=== PATIENT | female | born 1975 | race Caucasian/White ===

== ENCOUNTER → 2018-08-07 12:02 | Outpatient (CLI) | payer OTHER, SELFPAY ==
--- NOTE | 2018-08-07 12:18 | MRI_ITS ---
STUDY: MRI LUMBAR SPINE WITHOUT CONTRAST REASON FOR EXAM: Female, 42 years old. Lower back pain TECHNIQUE: Standardized fat and water weighted pulse sequences were obtained in the sagittal and axial planes. COMPARISON: None FINDINGS: T12-L1: Normal endplates. Normal disc height, hydration and morphology. Normal bilateral facet joints. Normal central canal and bilateral lateral recesses. Normal bilateral intervertebral neural foramina. Normal lumbar lordosis. There is no substantial scoliosis. Normal conus medullaris that terminates at the L1 level. L1-2: Normal endplates. Normal disc height, hydration and morphology. Normal bilateral facet joints. Normal central canal and bilateral lateral recesses. Normal bilateral intervertebral neural foramina. L2-3: Normal endplates. Normal disc height, hydration and morphology. Normal bilateral facet joints. Normal central canal and bilateral lateral recesses. Normal bilateral intervertebral neural foramina. L3-4: Endplate spondylosis. Decreased disc height and small circumferential disc bulge. Degenerative changes of the bilateral facet joints. Mild narrowing of the central canal and bilateral intervertebral neural foramina. L4-5: Endplate spondylosis. Decreased disc height and small circumferential disc bulge. Degenerative changes of the bilateral facet joints. Mild narrowing of the central canal and bilateral intervertebral neural foramina. L5-S1: Endplate spondylosis. Decreased disc height and small circumferential disc bulge. 4 mm spondylolisthesis. Degenerative changes of the bilateral facet joints. Mild narrowing of the central canal and bilateral intervertebral neural foramina. Normal visualized sacral ala. Normal visualized paraspinous soft tissue structures. MRI/Spine Lumbar (Routine) IMPRESSION: Multilevel degenerative changes, as described above. Electronically Signed: Juarez Marks, at 11:53 EDT Tel , Service support ,
== END ==
PROVIDERS: Family Provider Physician Assistant; PCP Physician Assistant; Referring Provider Anesthesiology Pain Medicine; Visit Provider Anesthesiology Pain Medicine
DX: M54.5 Low back pain (principal); M79.606 Pain in leg, unspecified
CPT/HCPCS: 72148

== ENCOUNTER 2018-12-03 09:00 | Outpatient (RCR) | payer OTHER, SELFPAY ==
--- NOTE | 2018-12-03 09:00 | BH.SGPN.GN ---
Behaviors/Verbalizations/Mental Status: [] Eye contact is good. Motor activity is appropriate. Appearance is casual. Speech is Appropriate. Mood is depressed. Affect is flat. Thoughts are linear and logical. No evidence of psychosis. Reviewed daily check in sheet and no reports of suicidal ideations or intent. Client Response/Progress/Benefit: [] Pt spoke when prompted. Attentive during group. This was pt's first day in IOP. Shared what she would like to get out of group. Reports that she would like to learn more coping skills and increase her ability to ask for help. She also empathized with peers on several topics during the group. No progress noted as this was first day. Benefited from group support, encouragement, and feedback. Will continue in IOP to maintain safety, prevent decompensation, and improve functioning to return to work. Narrative Note: []
--- NOTE | 2018-12-03 11:20 | BH.SGPN.GN ---
Behaviors/Verbalizations/Mental Status: [Eye contact is good. Motor activity is appropriate. Appearance is casual. Grooming appropriate. Speech has normal rate and soft tone. Mood is depressed, anxious. Affect is constricted. Thoughts are linear and logical. No evidence of psychosis. ] Client Response/Progress/Benefit: [Pt attentive throughout, contributed some to discussion and provided supportive feedback to fellow participants. Engaged in creating own mental health SMART goal. Pt identified goal is to improve self-confidence by saying 2-3 affirmations daily over the next week. Pt reported this goal will benefit her improving confidence, reducing isolations, and increasing willingness to set boundaries for herself. Pt identified potential barriers to accomplishing goal to include: self-doubt, negative thoughts and distortions, not knowing what to do, unexpected situations at work. Pt reported she will overcome barriers by reciting positive affirmations, setting time aside for daily check-ins, and establishing a specific date and time to meet with friends to reduce likelihood of not establishing plans. Seemed to benefit from identifying a SMART goal and coming up with strategies to overcome potential barriers. Pt to continue IOP to increase consistent application of healthy coping skills, decrease depression and anxiety, maintain gains, and prevent decompensation.] Narrative Note: []
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
--- NOTE | 2018-12-03 12:40 | BH.DR.ITP ---
Initial Treatment Plan - Patient Information Visit Information: ADMISSION DATE: EXPECTED LOS: 4-6 weeks - Problems/Symptoms Problem #1:: Depression Symptom:: suicidal thoughts, self-harm, hopelessness Problem #2:: Anxiety Symptom:: rumination, panic attacks
--- NOTE | 2018-12-04 09:00 | BH.SGPN.GN ---
Behaviors/Verbalizations/Mental Status: [] Eye contact is good. Motor activity is appropriate. Appearance is casual. Speech is Appropriate. Mood is depressed. Affect is flat. Thoughts are linear and logical. No evidence of psychosis. Reviewed daily check in sheet and pt reports 2/5 for suicidal ideations, and 0/5 for intent. Will check in with patient Client Response/Progress/Benefit: [] Pt participated at time during the group discussion. Emotion for today is worried. Shared that she had a difficult conversation with her yesterday regarding her treatment, finances, and retuning to work. Pt reports that her is supportive however has concerns about finances with her being off work. Pt was assertive and understands the importance of taking time for herself and her mental health. Proud of herself for being assertive and having the conversation. Shared that yesterday was her first day in IOP and that yesterday wasn't as bad as I thought it was going to be. Progress noted. Benefited from group support, encouragement, and feedback. Will continue in IOP to maintain safety, prevent decompensation, and improve functioning to return to work. Narrative Note: []
--- NOTE | 2018-12-04 10:00 | BH.SGPN.GN ---
Behaviors/Verbalizations/Mental Status: []Eye contact is good. Motor activity is appropriate. Appearance is causal. Speech is Appropriate. Mood is anxious and depressed. Affect is constricted. Thoughts are linear and logical. No evidence of psychosis. Client Response/Progress/Benefit: []Pt responded well to session AEB pt listening attentively to others and contributing to discussion at times. Pt connected with peers during discussion about common unhealthy skills that are often used to manage stressors and mental health. Pt stated she often uses sleep and taking on too much as unhealthy coping skills. Worked with group to identify the following strategies to be helpful with increasing healthy coping skills: self-awareness, stopping self and using healthy skill, practicing new skills, and motivation. Pt able to make connections when processing group activity about importance of creating a stable base of healthy coping skills. Pt seemed to benefit from increased awareness of benefits of using healthy coping skills and understanding importance of having balance between internal and external coping skills. Pt to continue IOP level of care to maintain safety, increase healthy coping skills, and prevent decompensation. Narrative Note: []
--- NOTE | 2018-12-04 11:02 | BH.SGPN.GN ---
Behaviors/Verbalizations/Mental Status: []Client alert and oriented, neatly dressed and groomed. Eye contact good. Motor activity appropriate. Speech within normal limits. Affect constricted, mood anxious. Thoughts linear, logical, no signs of hallucinations or delusions. Client Response/Progress/Benefit: []Client responded well to session, taking notes throughout and listening during group brainstorming. Client appeared to connect with the activity from second group and helped the group identify benefits of having a strong foundation of internal and external coping skills. Client shared she wants to work on being more open with her external supports. Client attentive during group discussion the different categories of coping skills and provided some examples. Client agreed with peers that it is important to have a variety of coping skills and recognized it will take time to replace unhealthy coping skills. Client created a coping skills ?menu? from the five categories of coping skills. Client left group before sharing her coping skills menu, but client took notes during discussion. Client appeared to benefit from increasing her repertoire of healthy coping skills. Client?s second day of IOP, no progress to document at this time. Will continue IOP to prevent decompensation and improve mood stability.
--- NOTE | 2018-12-04 13:59 | BH.COMM_ITS ---
Communication Note - Communication with Client Communication Note: Pt self reported 2/5 for suicidal ideations today on check- sheet. Met with her to discuss this. Pt denies any active suicidal ideations, plan, or intent. States that she has passive thoughts of better off being . Describes these thoughts are fleeting. Reports that this has been her baseline. Tearful at times. Increased support from however per pt he struggles with understanding her illness. Discussed some strategies. Protective factors. Future-oriented. Adjusting well to IOP. Will meet for individual session tomorrow with therapist.
--- NOTE | 2018-12-05 09:00 | BH.SGPN.GN ---
Behaviors/Verbalizations/Mental Status: [] Eye contact is good. Motor activity is appropriate. Appearance is casual. Speech is Appropriate. Mood is depressed. Affect is flat. Thoughts are linear and logical. No evidence of psychosis. Reviewed daily check in sheet and pt reported 2/5 for suicidal ideation and 0/5 for intent. Per pt this is baseline. Client Response/Progress/Benefit: [] Pt was an active participant in group discussion. Notes positive as she slept well last night. Reports best sleep in over a month. Reports that yesterday Ilost my crap. Reports had thoughts that she was regressing and that she would return to the hospital. In an attempt to self-calm she went shopping and bought 6 donuts. Reports that shopping and eating are unhealthy coping skills that she utilizing. Reports that she will often hide food throughout the house from her . Feels horrible about this. Group provided feedback. Pointed out the she minimized her unhealthy skills as she went shopping at [employer] only spending $5 and of the 6 donuts she bought she only ate 3. Awareness and use of skills to minimize impact and regain control. Tearful. Benefited from group support, encouragement, and feedback. Will continue in IOP to maintain safety, prevent decompensation, and improve functioning. Narrative Note: []
--- NOTE | 2018-12-05 10:15 | BH.SGPN.GN ---
Behaviors/Verbalizations/Mental Status: []Client alert and oriented, neatly dressed and groomed. Eye contact good. Motor activity appropriate. Speech within normal limits. Affect flat, mood anxious. Thoughts linear, logical, no signs of hallucinations or delusions. Client Response/Progress/Benefit: []Client was an active participant in group discussions. Attentive and provided insight during processing of quote of the day. Client agreed with peers that it is easier to ?pretend our negatives aren?t a problem? which keeps people on an unhelpful path. The group and client worked together to identify barriers that keep one from choosing a new and healthier path to mental wellness which included; unhealthy habits, self-doubt, feeling overwhelmed, ruminations, substances, isolation, negative thinking, and ?choosing misery.? Attentive during psychoeducation on the chapters of life. Client was attentive during discussion, providing insight to distinguishing factors in each chapter. Reports that group topic reminded client that to choose a different path, one must recognize what is keeping them stuck and take responsibility. Benefited from increased awareness and education on barriers to choosing new wellness paths and chapters of life. Progress noted in client?s increased engagement during group sessions. Will continues IOP to prevent decompensation of depressive symptoms and increase healthy coping skills.
--- NOTE | 2018-12-05 15:21 | BH.MDN_ITS ---
Multi-Disciplinary Note - Note 30-min Individual Time Started:: 11:39 Date: 12/05/18 Purpose of session/treatment goals addressed:: The purpose of this session was to gather information on client's current stressors, symptoms, and treatment goals. Another goal was to build rapport and answer client's questions about the program. Eye Contact:: Good Motor Activity:: Appropriate Appearance:: Neat Speech:: Soft Mood:: Anxious, Dysthymic Affect:: Constricted Thoughts:: Linear, Logical, No evidence of hallucinations/delusions noted Staff Interventions:: Therapist used active listening and open-ended questions to explore client's current stressors, symptoms, and treatment goals. Therapist provided psychoeducation on CBT triangle and maintenance cycles. Therapist used strengths perspective to build rapport and help client feel comfortable in the IOP setting. Therapist communicated with client that this therapist will not be client's ongoing individual therapist in IOP. Client Response:: Client responded well to session, open to meeting with therapist. Client reports this is her first time doing group therapy, so she feels nervous and somewhat intimidated. Client shared she continues to feel depressed and anxious most days. Client states she often cries in the shower and feels worthless. Client willing to discuss treatment goals and identified her treatment goals to be; increase her comfort in asking for help, become more open with her about her mental health, challenge negative thoughts, and learn healthier self-soothing coping skills. Client reports she has a history of self- harm by cutting as well as skin-picking. Client shared she also binge eats and impulse shops. Client states I know these are bad and I need new things. Client stated she has been taking notes and learning a lot since starting IOP on Saturday. Client receptive to psychoeducation on CBT triangle and maintenance cycles. Client and therapist also discussed possible family session in the future should client want to bring in her . Risks/Concerns:: Client reports passive thoughts of , but she denies any active suicidal ideations, plan, or intent as of 12/05/18. Client future oriented and identifies her family as a reason to live. Progress Toward Goals/Plan:: Client's third day of IOP, no progress currently. Client reports this is her first group therapy experience, so she feels nervous, but hopeful. Client endorses a severely depressed mood, negative thinking, anhedonia, passive thoughts of , binge eating, impulsive behaviors, and isolation from supports. Client also reports symptoms of anxiety and panic. Client reported Will continue IOP to prevent decompensation, improve daily functioning, and increase mood stability. This therapist met with client as client's IOP therapist was on vacation. Client is aware this therapist will not be client's ongoing individual therapist and reports being fine with the plan. Time Stopped:: 11:55
--- NOTE | 2018-12-05 16:31 | BH.MTP ---
[facility] - Patient Information Program Physician:: Dr. Trudy Guerrero Primary Therapist:: ZIA Cox - Psychiatric Diagnoses Psychiatric Diagnoses:: Bipolar II disorder most recent episode depressed, severe without psychosis. Generalized anxiety disorder, alcohol use disorder in full remission. Diagnosis Code(s):: F31.81 - Estimated LOS Estimated LOS (in weeks):: 6 Problem/Goal #1 - Problem/Goal #1 Stated Goal:: Client will improve mood management and reduce depressive sx and suicidal ideations, feelings of hopelessness, and anger outbursts due to Bipolar Disorder through Intensive Outpatient Program. Description of Barriers: Hopelessness, occupational stressors, limited supports, hx of difficulties in regulating mood, financial stressors, poor motivation Functional Impact: Daily functioning is impacted by depression. Recent hospitalization due to depression and suicidal ideations resulting in pt taking leave from work as well. Struggles with managing depression and irritability on a daily basis, reported anger outbursts in the workplace, relationship tension as a result of poor emotion regulation. Goal Relevant Strengths/Supports: Pt is willing to engage, expresses a desire to improve management of mental health symptoms, is open to trying new treatment methods, and expresses a desire to engage supports. - Objectives Objective #1 Stated Objective: Client will identify 2-3 depressive thinking patterns and be able to challenge and replace negative thoughts. Interventions: Therapist will assist client in identifying depressive thinking patterns and provide client with resources to help teach client strategies in defeating negative thoughts. Discharge Criteria: Client will have met this objective when can identify at least two depressive thinking patterns and be able to defeat depressive and suicidal thoughts. Target Date: 01/14/19 Review Date: 12/31/18 Objective #2 Stated Objective: Client will identify at least 2 triggers to increased depressive thinking and mood dysregulation, as well as 2 coping skills to use to help avoid suicidal thoughts/ideation, avoidance, or other unhealthy means of coping. Interventions: Therapist will help client apply group concepts to help client better understand self, potential warning signs and triggers, as well as cope with everyday challenges and struggles. Therapist will help client find internal solutions to mental health struggles and aid client in connecting triggers with coping strategies that will help stabilize mood. Therapist will also help client be more articulate and expressive so can communicate with family and friends when decompensating. Discharge Criteria: Client will have met this goal when mood is stable, is able to identify at least 2 triggers, and 2 coping skills to use. Client will also be able to identify when should use these triggers. Target Date: 01/14/19 Review Date: 12/31/18 Problem/Goal #2 - Problem/Goal #2 Stated Goal:: Client will reduce overall frequency, intensity, and duration of the anxiety so that daily functioning is not impaired. Description of Barriers: Hopelessness, occupational stressors, limited supports, hx of difficulties in regulating mood, financial stressors, poor motivation Functional Impact: Daily functioning is impacted by depression. Recent hospitalization due to depression and suicidal ideations resulting in pt taking leave from work as well. Struggles with managing depression and irritability on a daily basis, reported anger outbursts in the workplace, relationship tension as a result of poor emotion regulation. Goal Relevant Strengths/Supports: Pt is willing to engage, expresses a desire to improve management of mental health symptoms, is open to trying new treatment methods, and expresses a desire to engage supports. - Objectives Objective #1 Stated Objective: Client will learn and implement 2-3 calming skills to reduce overall anxiety and 2-3 problem solving strategies realistically address worries and better manage anxiety symptoms. Interventions: Therapist will teach client calming/relaxation skills and assign client homework which practices relaxation skills daily. Therapist will teach client problem-solving strategies involving defining a problem, brainstorming solutions, selecting and implementing various solutions. Discharge Criteria: Client will have achieved this goal when can verbalize at least 2 calming skills and 2-3 problem solving strategies to realistically addressing worries and effectively implement those skills. Target Date: 01/14/19 Review Date: 12/31/18
--- NOTE | 2018-12-08 09:00 | BH.SGPN.GN ---
Behaviors/Verbalizations/Mental Status: [] Eye contact is good. Motor activity is appropriate. Appearance is casual. Speech is Appropriate. Mood is depressed. Affect is flat. Thoughts are linear and logical. No evidence of psychosis. Reviewed daily check in sheet and no reports of suicidal ideations or intent. Client Response/Progress/Benefit: [] Pt participated at time during group discussion. Emotion for today is stressed. Shared some mental health wins which included spending time with her grandson which improves her mental health symptoms and making it through spiritism by herself despite anxiety. Anxiety, depression, and negative thoughts continue to impact her daily functioning. Should be noted that she did not indicate any suicidal thoughts today on check-in sheet. Progress noted per pt report. Benefited from group support, encouragement, and feedback. Will continue in IOP to maintain safety, increase coping skills, prevent decompensation, and to increase functioning to return to work. Narrative Note: []
--- NOTE | 2018-12-08 10:10 | BH.SGPN.GN ---
Behaviors/Verbalizations/Mental Status: []Client alert and oriented, casually dressed and groomed. Eye contact good. Motor activity appropriate. Speech within normal limits. Affect constricted, mood anxious and depressed. Thoughts linear, logical, no signs of hallucinations or delusions. Client Response/Progress/Benefit: []Pt engaged in session as evidenced by pt providing input throughout session and listening attentively to peers. Pt agreed with others her mental illness sometimes defines her. Pt worked with peers to identify factors that perpetuate mental health stigma. Pt stated she engages in self-stigma by feeling shame for her mental illness, which pt stated results in her believing she doesn't deserve any better. Pt stated mental health stigma can keep her stuck from moving forward. Pt worked cooperatively with small group to identify various myths and facts about mental illness. Pt seemed to benefit from increased awareness of impact societal and self-stigma has on progress. Progress noted with increased engagement in group session. Pt to continue IOP level of care to maintain safety, increase use of healthy coping, and prevent decompensation. Narrative Note:
--- NOTE | 2018-12-08 11:14 | BH.SGPN.GN ---
Behaviors/Verbalizations/Mental Status: []Client alert and oriented, neatly dressed and groomed. Eye contact good. Motor activity appropriate. Speech within normal limits. Affect congruent, mood dysthymic. Thoughts linear, logical, no signs of hallucinations or delusions. Client Response/Progress/Benefit: []Client responded well to session, active participant and attentive throughout. Group identified the benefits of addressing stigma which included; increased self-confidence, feeling accepted, improved relationships, and less self-deprecation. Client helped the group identify thoughts and behaviors people engage in that reinforce stigma. Client reported she uses self-deprecation and ?acting like people treat me? which reinforces stigma in her life. Group brainstormed strategies to combat social and perceived stigma which included; talking to supports, practicing positive self-talk, not using labeling language, and providing psychoeducation. Client reported she will talk more openly to her supports and give them education on her mental health to combat stigma. Appeared to benefit from increasing awareness of ways he reinforces stigma and how to combat stigma. Will continue IOP tx to prevent decompensation and promote the use of healthy coping skills.
--- NOTE | 2018-12-09 09:10 | BH.SGPN.GN ---
Behaviors/Verbalizations/Mental Status: [] Eye contact is good. Motor activity is appropriate. Appearance is casual. Speech is Appropriate. Mood is depressed. Affect is flat. Thoughts are linear and logical. No evidence of psychosis. Reviewed daily check in sheet and pt reports 1/5 for suicidal ideations and 0/5 for intent. This is actually below baseline. Client Response/Progress/Benefit: [] Pt participated at time during group discussion. Emotion for today is stressed. Shared with the group that her sleep continue to be stable. Reports that she slept well again last night ... I feel I'm getting back to normal. Spoke with her employer which was a difficult conversation in regards to her return to work timeline. Proud that she did not avoid this. Overall the conversation was positive. Progress noted reporting decreased stress and depression. Beginning to utilize coping skills and talking with support which has been beneficial. Benefited from group support, encouragement, and feedback. Will continue in IOP to maintain safety, increase coping skills, and improve daily functioning to return to work. Narrative Note: []
--- NOTE | 2018-12-09 10:07 | BH.SGPN.GN ---
Behaviors/Verbalizations/Mental Status: []Client alert and oriented, casually dressed and groomed. Eye contact good. Motor activity appropriate. Speech within normal limits. Affect congruent, mood anxious and dysthymic. Thoughts linear, logical, no signs of hallucinations or delusions. Client Response/Progress/Benefit: []Pt receptive to session, provided input and actively listening throughout discussion on stress. Able to brainstorm with the group positive and negative aspects of stress on physical and mental health. She participated in identifying current stressors impacting mental health. Pt's current stressors include: financial problems, mental health, physical health, toxic work environment, and relationships. Pt noted that her most significant stressors are currently financial problems adn worry about returning to toxic work environment. Appeared to benefit from gaining awareness of own current stressors and learning about the impact stress has on overall wellbeing. Progress noted in improved engagement in group and application of skills outside treatment environment. Recommend continued IOP tx to improve anxiety and depression symptom management, improve utilization of healthy coping, and prevent decompensation. Narrative Note: []
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
--- NOTE | 2018-12-09 11:09 | BH.SGPN.GN ---
Behaviors/Verbalizations/Mental Status: [Client alert and oriented, casual appearance and appropriate grooming. Eye contact fair to good. Motor activity appropriate. Speech within normal limits. Affect congruent, mood depressed and anxious. Thoughts linear, logical, no signs of hallucinations or delusions.] Client Response/Progress/Benefit: [Pt engaged in session as evidenced by pt listening and taking notes, participating in activity, and providing input throughout session. This is progress as it is only pt second day in IOP tx. She worked with the group to complete the challenge activity and did well to remain engaged while being challenged to manage in the moment stressors. Pt was able to identify connections between activity and managing stress in daily life. Pt checking-in with one another throughout was most effective in preventing setbacks and improving overall support and awareness. Pt actively listening during discussion about the 4 A's of managing stress. Expressed wanting to utilize accept in order to begin better accepting current situation and improving self-talk as a result. Pt seemed to benefit from increased awareness of the impact of stress on mental health and increasing repertoire of stress management strategies. Pt to continue in IOP to prevent decompensation, continue promote stability, and decrease symptoms of depression.] Narrative Note: []
--- NOTE | 2018-12-09 11:35 | BH.MDN ---
Multi-Disciplinary Note - Note 60-min Individual Time Started:: 12:28 Date: 12/09/18 Purpose of session/treatment goals addressed:: Purpose of session was to establish rapport with pt as well as assess current symptoms and stressors resulting in admission to IOP level of care. Additional purpose was to identify treatment goals while in IOP level of care and potential barriers to treatment. Eye Contact:: Fair Motor Activity:: Appropriate Appearance:: Neat, Casual Speech:: Appropriate Mood:: Anxious, Depressed Affect:: Congruent Thoughts:: Linear, Logical, No evidence of hallucinations/delusions noted Staff Interventions:: Therapist used open ended and furthering questions to elicit pt's current symptoms and stressors as well as gather relevant information regarding events leading up to IOP admission. Therapist used [place] technique to collaborate with pt in identifying IOP treatment goals and potential barriers. Therapist provided support and emotional validation by using active listening and empathic responses. Client Response:: Pt receptive of session, engaged throughout. Discussed circumstances leading to IOP admission and current stressors contributing to mental health decompensation. Pt shared her primary stressor is work. Discussed feeling invalidated and expected to adhere to unrealistic expectations. 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 Pt identified that this impacts her self-esteem and that she struggles significantly with low self-worth, Reports is supportive however pt feels she relies on him too much and ends up isolating from others as a result. Discussed a desire to work on improving self-confidence, reducing anxiety and depression, and better regulating emotions while in IOP program. Risks/Concerns:: No risks or concerns at this time. Pt denies any current SI, plan, or intent as of this date, 12/09/18 Progress Toward Goals/Plan:: No progress noted as pt new too IOP tx and still adjusting to tx environment. Does report increased hope as she is doing something about her mood and mental health. Plan is to continue with IOP to prevent decompensation, stabilize mood, and increase self-care, support, and healthy coping. Time Stopped:: 13:21
--- NOTE | 2018-12-10 09:05 | BH.SGPN.GN ---
Behaviors/Verbalizations/Mental Status: []Client alert and oriented, neatly dressed and groomed. Eye contact good. Motor activity appropriate. Speech within normal limits. Affect congruent, mood euthymic. Thoughts linear, logical, no signs of hallucinations or delusions. Reviewed client?s symptom tracker, no risk for suicidal ideation, plan, or intent as of 12/10/18. Client Response/Progress/Benefit: []Client responded well to session, engaged throughout session. Client reports feeling ?excited? today. Client reported she has been feeling more motivation lately which has helped client get back to cleaning and organizing her house. Client shared she cooked dinner for her last night which was another mental health win for her today. Client stated she has been working on using healthier coping skills and communicating more with her . Client?s current stressor is her house is getting appraised soon which makes client anxious. The group provided supportive statements and ways client can cope with her anxiety. Appeared to benefit from reflecting on her positives and reviewing healthy coping skills. Will continue IOP tx to promote mood stability and generalization of healthy coping skills to reduce anxiety and depression.
--- NOTE | 2018-12-10 10:15 | BH.SGPN.GN ---
Behaviors/Verbalizations/Mental Status: []Client alert and oriented, casually dressed and groomed. Eye contact good. Motor activity appropriate. Speech within normal limits. Affect constricted, mood depressed. Thoughts linear, logical, no signs of hallucinations or delusions. Client Response/Progress/Benefit: []Pt semi-active participant in session AEB pt providing input at times during discussion and listened attentively to peers. When processing activity pt connected with peers that it can be challenging to understand others perspective because often see a situation from own lens. Pt engaged in discussion about the impact perspective can have on mental health. Pt agreed with others when feeling depressed or anxious it's easier to have a negative perspective. Pt seemed to benefit from increased awareness of impact perspective has on mental health. Progress noted with increased self-awareness of distorted and negative thinking. Pt to continue IOP level of care to maintain gains, continue to challenge distorted thought patterns, and prevent decompensation. Narrative Note: []
--- NOTE | 2018-12-10 11:20 | BH.SGPN.GN ---
Behaviors/Verbalizations/Mental Status: [Client alert and oriented, casually dressed and groomed. Eye contact fair to good. Motor activity appropriate. Speech within normal limits. Affect congruent, mood anxious. Thoughts linear, logical, no signs of hallucinations or delusions. ] Client Response/Progress/Benefit: [Client responded well to session, attentive and engaged during small group discussion. Worked with group to discuss the mental health benefits of recognizing strengths which included; improved self-esteem, better relationships, increased hope, decreased anxiety, and willingness to ask for help. Group identified the barriers that have prevented them from acknowledging their strengths and successes. These barriers included; negative thoughts, feeling like a burden, fear of being judged, and past experiences. Group identified strategies to overcome barriers that prevent them from seeing strengths. These strategies included; keeping track of ?wins?, challenging negative thoughts, using affirmations, and reaching out to supports to challenge perspective when needed. Client initially struggling to identify personal strengths, but with aid from group and therapist she was able to identify personal strengths. Strengths included; willingness to seek help, empathy, positive supports, and ability to actively listen to others. Appeared to benefit from recognizing personal strengths and identifying strategies to overcome barriers. Will continue IOP tx to improve mood stability, further increase healthy coping skill application, and prevent decompensation.] Narrative Note: []
--- NOTE | 2018-12-15 09:10 | BH.SGPN.GN ---
Behaviors/Verbalizations/Mental Status: [] Eye contact is good. Motor activity is appropriate. Appearance is casual. Speech is Appropriate. Mood is depressed. Affect is flat. Thoughts are linear and logical. No evidence of psychosis. Reviewed daily check in sheet and no reports of suicidal ideations or intent. Client Response/Progress/Benefit: [] Pt spoke when prompted. Attentive. Emotion for today is not all there. Notes decreased concentration and focus. Difficultly with making connections and putting her thoughts into words. Shared a mental health win this weekend and participating in a social event for an extended period of time. Anxiety and depression continue to impact daily functioning however is beginning to utilize some coping skills with some success. Utilized breathing and thought-stopping during recent social event. Progress noted. Benefited from group support, encouragement, and feedback. Will continue in IOP to maintain safety, prevent decompensation, and improve functioning to return to work. Narrative Note: []
--- NOTE | 2018-12-15 10:10 | BH.SGPN.GN ---
Behaviors/Verbalizations/Mental Status: []Client alert and oriented, casually dressed and groomed. Eye contact fair. Motor activity appropriate. Speech within normal limits. Affect constricted, mood depressed. Thoughts linear, logical, no signs of hallucinations or delusions. Client Response/Progress/Benefit: []Pt was a passive participant as evidenced by pt. Pt worked with the group to define anger and its causes, as well as the internal and external impacts of anger. Group identified potential consequences of unhealthy anger include: losing relationships, guilt, increased stress, resentment, lose job, depression and anxiety. Pt identified underlying factors of her anger include: boss having unrealistic expectations, being let down by others, when she says something stupid, loses his temper, and when she makes a mistake. Pt reported her common reactions to anger include: crying, road rage, rumination, yelling, walking away, and throwing things. Benefited from group by increasing awareness of the negative impacts of unhealthy anger and underlying factors that contribute to her personal anger. Pt progressing with increased self-awareness of how her behavior can impact her emotions and increase negative thoughts. Continued IOP tx to decrease depression, increase utilization of healthy coping, and prevent decompensation. Narrative Note: []
--- NOTE | 2018-12-15 11:07 | BH.SGPN.GN ---
Behaviors/Verbalizations/Mental Status: [Eye contact is good. Motor activity appropriate. Appearance is causal, grooming attended to. Speech is appropriate rate and tone. Mood is dysthymic, anxious. Affect is constricted. Thoughts are linear and logical. No evidence of psychosis. ] Client Response/Progress/Benefit: [Pt remained an active participant throughout, AEB engagement in activity and providing some input to discussion potions of session. Pt did well to participate in the group activity and incorporate anger management/emotion regulation skills in order to do so. Able to challenge herself to continue to participate despite urges to quit when becoming frustrated. Worked with the group to process and identify the various barriers faced in the activity and skills used to successfully complete the task at hand without becoming dysregulated or angry. Pt identified barriers impacting own ability to better manage anger related symptoms in daily life which included: feeling belittled, all or nothing thoughts, shutting down or lashing out, and negative self-talk. Pt appeared to benefit from discussion regarding potential benefits of anger and brainstorming with the group potential strategies for emotional release or harnessing anger in healthy ways. Pt identified plans to begin taking breaks and deep breathing before responding as technique to improve coping with anger related sx. Recommended continued IOP txt to reduce mental health sx, continue to promote skill application, and prevent decompensation.] Narrative Note: []
--- NOTE | 2018-12-16 09:00 | BH.SGPN.GN ---
Behaviors/Verbalizations/Mental Status: [] Eye contact is good. Motor activity is appropriate. Appearance is casual. Speech is Appropriate. Mood is anxious. Affect is congruent. Thoughts are linear and logical. No evidence of psychosis. Reviewed daily check in sheet and no reports of suicidal ideations or intent. Client Response/Progress/Benefit: [] Pt participated at times during group discussion. Attentive. Daily symptom tracker shows 3/5 for anxiety and agitation. Reports that she is continuing to attempt to stay active and utilize support. Sleep continues to impact MH as she is waking at 1am. Stressor is money and being off work however knows that she needs some time to stabilize mood as she does not want to end up back at psychiatric hospital. Progress noted per pt report. Benefited from group support, encouragement, and feedback. Will continue in IOP to maintain safety, prevent decompensation, and improve functioning. Narrative Note: []
--- NOTE | 2018-12-16 10:10 | BH.SGPN.GN ---
Behaviors/Verbalizations/Mental Status: [] Eye contact is good. Motor activity is appropriate. Appearance is casual. Speech is Appropriate. Mood is depressed. Affect is flat. Thoughts are linear and logical. No evidence of psychosis. Client Response/Progress/Benefit: [] Pt participated at times during group discussion and due to physical limitation did not participate in activity however did provided support to peers. Did not contribute during discussion on quote of the day however was attentive. Group worked together to come up with common negative forces in thief lives which can hold them back from growth. There included; toxic relationships, negative thoughts, cognitive distortions, fear of failure, anger, and unhealthy coping skills (alcohol, sleeping to escape, isolation). Group then worked together to identify common positive forces which help us grow. Theses included; Healthy coping skills, positive support, self-care, patience, realistic and positive thinking, and following treatment suggestions. Pt was attentive during psychoeducation on the importance of utilizing many aspects of positive forces to help one grow. Benefited from group with increased insight and awareness on the impact of negative and positive forces on mental wellness. Narrative Note: []
--- NOTE | 2018-12-16 11:10 | BH.SGPN.GN ---
Behaviors/Verbalizations/Mental Status: []Client alert and oriented, casually dressed and fair grooming. Eye contact fair. Motor activity appropriate. Speech within normal limits. Affect congruent, euthymic, slightly anxious. Thoughts linear, logical, no signs of hallucinations or delusions. Client Response/Progress/Benefit: []Client provided input at times during discussion, listened attentively to peers. Client completed worksheet identifying her positive and negative forces in life. Client identified positive forces that aid in progressing toward mental health goals include: group therapy - learning healthy coping skills, and kids, self-care (meditation and taking time for self), restorationist family, and listening to music. Client indicated negative forces that prevent progress include: toxic people, fear, self-hate, negative thinking, physical health pain, and fixation on other people. Client identified physical pain as the force that impacts her ability to move forward the most. Client stated group therapy to be the most helpful positive force because she learns healthy skills to manage mental health symptoms. Client seemed to benefit from increased awareness of personal positive and negative forces in life and impact they have on mental health and wellness. Client to continue IOP level of care to challenge distorted thoughts, increase utilization healthy coping and prevent decompensation. Narrative Note: []
--- NOTE | 2018-12-16 14:44 | BH.MDN ---
Multi-Disciplinary Note - Note 30-min Individual Time Started:: 12:10 Date: 12/16/18 Purpose of session/treatment goals addressed:: Purpose of this session was to assessed pt current symptoms, stressors, and perception of progress in IOP. Worked on developing treatment plan. Another purpose was to provide psychoeducation on relationship between negative core beliefs, distorted thoughts, and depression/low self-esteem. Additional topics covered: cognitive restructuring techniques. Eye Contact:: Good, Other - tearful Motor Activity:: Appropriate Appearance:: Casual Speech:: Appropriate Mood:: Anxious, Depressed Affect:: Congruent Thoughts:: Linear, Logical, No evidence of hallucinations/delusions noted Staff Interventions:: Therapist asked open-ended and furthering questions to elicit additional information regarding pt current sx, stressors, and application of coping skills learned. Therapist provided empathic responses to validate pt emotions and normalize frustrations. Therapist utilized CA techniques to elicit change behaviors, as well as identify barriers to skill application. Provided psychoeducation on mistaken beliefs and cognitive distortions, as well as importance of self-awareness in beginning to challenge/replace negative thoughts. Introduced concept of thought record and provided pt with an example to complete for homework. Client Response:: Pt receptive of session and actively engaged in discussion throughout. She reports ?I?m just really weepy today? and went on to indicate that this due to an influx of financial and medical stressors in the past week. Pt was informed during a doctor?s appointment on previous date that her degenerative disc disease is progressing more rapidly than expected and that she now must use a handicapped placard and an electric wheelchair when going anywhere that may require significant walking. Pt discussed being embarrassed by this as she views it as a sign of weakness and fears people think she is ?fat, lazy, and stupid? when they see her in public. Additionally, shared that she and her are attempting to refinance their house in order to catch up on medical bills which has been stressful as they are not sure if the appraisal will be successful. Pt identified guilt related to the need for refinancing as pt is currently unable to work due to mental health concerns and many of the medical bills are related to pt?s health care. Shared that she views herself as a failure, weak, and stupid for being unable to cope with her mental and physical health struggles on her own. Pt able to connect with education on mistaken beliefs and cognitive distortions. Pt expressed apprehension at first as she is afraid this will be too difficult for her to successfully do, however became more receptive with continued discussion and normalization of initial difficulty until skill comprehension increases. Therapist introduced concept of thought log to increase awareness of the impact that her thoughts have on overall self-esteem and ability to cope in healthy ways. Pt reports she has struggled with negative core believes about herself since childhood. She and therapist spent the remainder of session identifying evidence that invalidates distortions and reframing negative thoughts. Provided pt with thought log to complete as homework. Risks/Concerns:: No risks or concerns noted. Pt denies any active SI, plan, or intent as of this date. She is future oriented, indicates an ability to maintain safety, and has family as major protective factors. Progress Toward Goals/Plan:: Some progress noted as pt reports increased hope and motivation to improve mental health and sx management. She discussed connecting with fellow participants and knowing she is not alone in her struggles with depression and anxiety has been beneficial in maintaining her own sense of hope and encouragement. Pt reports that topics discussed in group have resonated with her. She remains medication compliant and consistent with attendance so far. Pt does however report increased fatigue impacting her ability to engage in activities she enjoys or daily responsibilities as desired. Pt additionally continues to report significant negative self-talk and core beliefs reinforcing depression and poor self-esteem. Will continue in IOP to maintain safety, stabilize mood, and prevent decompensation. Time Stopped:: 12:45
--- NOTE | 2018-12-17 09:00 | BH.SGPN.GN ---
Behaviors/Verbalizations/Mental Status: [] Eye contact is good. Motor activity is appropriate. Appearance is disheveled. Speech is Appropriate. Mood is anxious. Affect is congruent. Thoughts are linear and logical. No evidence of psychosis. Reviewed daily check in sheet and no reports of suicidal ideations or intent. Client Response/Progress/Benefit: [] Pt participated at times during group discussion. Provided appropriate feedback to peers. Daily symptoms tracker notes 4/5 for anxiety and 3/5 for hopelessness. Pt discussed setting up boundaries with certain family members and the benefits of this on her mental wellness. Utilizing distraction skills as well as some internal skills to help with emotions. Check-in was brief however progress noted per pt report. Benefited from group support, encouragement, and feedback. Will continue in IOP to prevent decompensation, maintain safety, and improve functioning to transition back to work. Narrative Note: []
--- NOTE | 2018-12-17 09:01 | PCM.BH.PN ---
Progress Note Progress Note: History of Present Illness/Interim History: [] Patient is a 42-year-old female who is participating in the IOP program at [facility]. She has a history of depression and anxiety and was discharged from an inpatient psych admission on November 28, 2018. Patient states today that her mood she feels is improving slowly. Her moods is still somewhat depressed but she says she feels it is a little better. She is worried about returning to work in December however because she is not sure she can do it mentally or physically. She complains of back pain which is chronic and has worsened in recent months. She states that they do have financial stress due to her being off work. They are trying to ease this by refinancing their house and she is hopeful that this will help. Although her mood is a little better she says her sleep is still not very good. She is sleeping about 4 hours a night and then taking 1 to 2-hour nap during the day. She says she cannot take trazodone or any other sleep medicines because all of them give her too much of a hangover the next day. She denies any suicidal or homicidal ideation. She has no plan at this time. She denies any hallucinations or delusions. Her panic attacks are somewhat less now she gets them much less often at this point may be couple times a week. He still has decreased energy and again feels low in terms of her back pain is worsened and she is afraid that physically she is unable to do much. Current Psychiatric Medications: Paxil 40 mg p.o. daily which was increased to 40 mg 3 weeks ago. She has been on this since January 2018. She is also on Abilify 7.5 mg daily, gabapentin 300 mg 3 times daily p.o., and is not taking her trazodone. [] Mental Status Examination: [She is a 42-year-old female who appears normal for stated age. She is casually dressed and groomed with good hygiene. She has no psychomotor agitation or retardation. Her gait is slow but normal and she is using a tripod cane. She has good eye contact and speech is normal rate and rhythm with no pressure. Her mood is somewhat depressed but improving. Affect is constricted but no tears and is not flat. Her thought process is goal-directed and organized. Her thought content has no evidence of suicidal or homicidal ideation. No evidence of hallucinations or delusions. Reality testing is intact. Judgment is intact and some insight is present.] Diagnoses: [] [place] I: Bipolar 2 disorder most recent episode depressed severe without psychosis, generalized anxiety disorder, alcohol use disorder in full remission since 2002 [] [place] II: [Cluster B traits] [place] III: [Chronic back pain] [place] IV: Work, financial, and primary support issues Plan: Patient will continue to attend the IOP program as the structure, support, therapy and education is helping her slowly improve and learn better coping mechanisms. This is also to be continued to prevent exacerbation of her symptoms which might require readmission to the hospital. She feels she is improving in the program. Long discussion was held regarding increasing the Paxil dose for persistent depression versus weaning the Paxil and changing her to Cymbalta in the hopes that may be some of her pain would be improved. She has never taken Cymbalta before. The risks options possible complications side effects were discussed with the patient of Cymbalta and her other medications. In addition the possible side effects and complications of weaning the Paxil and changing over to Cymbalta were discussed with the patient and she understands and accepts these. If she had any time she feels that she is unable to be safe she will let us know at the IOP program or go to the emergency room. The plan is to decrease the Paxil to 20 mg p.o. daily several days after starting Cymbalta 30 mg p.o. daily. She will continue then Paxil 20 mg p.o. daily and Cymbalta 30 mg p.o. daily in addition to her other medications until I see her back in 1 week. She understands most of the benefit from the Cymbalta will take 2 weeks to appear.
--- NOTE | 2018-12-17 11:01 | BH.NA ---
Physical Data - Height/Weight Height: 1.57 m Weight:: 122.47 kg Weight in Pounds: 270.0 lbs Current Medication Compliance - Medication Compliance Do you take your medication as prescribed?: Yes Do you need assistance with taking medication?: No Have you had side effects from medication?: No Nutritional History - Appetite Nutritional Instructions:: If client shows signs of a swallowing problem, weight change of 10 pounds or more in the last month, or is on a diabetic diet, the physician will review and request a dietitian consult, as appropriate. All unintentional weight loss will be referred to the physician for decision on need for dietitian consult. Describe your appetite:: Good Have you noticed a change in your eating habits lately?: No Additional nutritional information:: Client notes a weight fluctuation of 70# within the last 2 years. Functional Assessment - Sleep Pattern Describe any problems with sleeping: Client describes some difficulty staying asleep some nights - Activities Motor Activity:: Functional Sensory/Communication Assess - Hearing Problems Do you have any hearing problems?: Adequate - Communication Problems Do you have difficulty understanding what people are saying?: No Do you have trouble putting your thoughts into words or expressing what you want to say?: No Do people ever have trouble understanding what you say?: No What is your primary language?: Maltese Learning Assessment - Learning Barriers Learning Barriers:: Ready to learn Medical Problems/History - Pain Assessment Do you have acute or chronic pain?: No - Female Reproductive Do you think you may be ?: No Have you reached menopause?: No Do you have any history of breast disease?: No Surgical History - Surgical History Have you had any surgeries? If so, list type and date:: Yes - see PMHx Substance Abuse - Substance Abuse Please describe substance abuse in the last 30 days:: Denies tobacco, ETOH, and illicit substance use; has been sober from ETOH since 2002, and is a former light cigarette smoker. Mental Status Summary - Mental Status Significant Findings/Observations on Appearance and Mood:: Kathleen is A&Ox4, cooperative with interview, and makes good eye contact. She has neat grooming and hygiene, casually dressed. Normal activity while seated. Slow gait with use of cane for ambulation. Speech is clear and of normal rate and volume. Mild depression. Full and appropriate affect. Logical associations and normal process. Average knowledge. No symptoms of delusions; denies hallucincations and HI. Admits to chronic SI without plan or intent. Good attention and concentration. Suicide Assessment - Suicidal Ideation Are you currently or have you been suicidal in the past?: Yes Suicidal Intentional Rating Scale (SIRS): Current suicidal thoughts/No plan/Contracts for safety Physician Notification: If Active suicidal thoughts/Will not contract for safety is checked, contact physician and document in the Physician Notification section below. Assault History/Potential - History of Assault Do you have a history of assaulting someone?: No Physician Notification: If yes, notify physician and document notification date and time below. Past Psychiatric History - MH Treatment Hx Past Psychiatric Medications:: Zoloft, Paxil, Lexapro, Wellbutrin ECT Therapy Details:: N/A Describe (age, circumstance, etc) any past hospitalizations: 11/21/18-11/28/18: [facility] with plan. Fall Risk Assessment - Age Age: Less than 60 - Mental Status Mental Status: Willing & able to ask for assistance when needed - Physical Status Physical Status: No problems - Impairments Impairments: None - Elimination Elimination: Continent AND independent - Gait or Balance Gait or Balance: Walks independently - Hx of Falls History of falls in the past 6 months: No known history - Medications/Substances Psychotropics:: Antidepressants, Antipsychotics Others:: Antihypertensives Medications/substances used within the past 24 hours or ordered to administer: 3 or more of the medications/substances listed above - Total Score Total Points:: 2 Physician Notification - Physician Notification Physician Notified: Trudy Helms Method of Notification: Face to Face Comments: treatment planning recommendations RN Summary of Impressions - Impressions Recommendations: Include psychiatric and medical issues, treatment planning recommendations, and discharge planning needs. Impressions: Psychiatric Issues: bipolar 2, ALICIA, cluster B traits Impression: General Medical Conditions: DDD, HTN, personal history of hysterectomy, cholecysectomy, and renal calculi - Level of Care How do the client's current symptoms and functional deficits support need for this level of care?: Kathleen notes a decompensation of her mental health for the past month despite outpatient treatment. She notes anxeity over work and finances. Kathleen endorses frustration with her lack of her chronic pain management, which is effecting her mental health. Client is considering filing for SSI/Disability for her physical pain. Client was recently hospitalized at [facility] for SI with plan (11/21/18-11/28/18); she does have chronic SI. Her binge eating has been intermittent with weight fluctuations of 70#, up and down, over the past year. IOP will provide skills training and social support to promote gains and prevent further decompensation.
--- NOTE | 2018-12-17 11:17 | BH.SGPN.GN ---
Behaviors/Verbalizations/Mental Status: [Eye contact good. Motor activity is appropriate. Appearance is casual and grooming appropriate. Speech an appropriate rate and tone. Mood is dysthymic, anxious. Affect is congruent with mood. Thoughts are linear and logical. No evidence of psychosis. ] Client Response/Progress/Benefit: [Pt did well to remain engaged throughout which is progress compared to previous passive role in groups. She was willing to participate during discussion portions of group, took notes, and remained open to feedback provided. Pt providing insight and did well to work within the small group setting to discuss the various factors that contribute to building Resilience. She noted that by reminding ourselves that change is inevitable, we are more likely to look for new ways to adjust to and cope with changes rather than remaining stuck or trying to fight it. She benefitted from reviewing strategies for developing and promoting a resilient lifestyle. She identified that focusing on improving her use of the resilience factor ?nurturing a positive view of yourself? would aide in further developing her own resilience. Expressed plans to begin ?weeding out toxic people? would aid in her ability to use more positive self-talk. Pt recommended continued IOP tx to prevent decompensation, continue to promote application of healthy skills to reduce anxiety and depression, as well as improve thought challenging. ] Narrative Note: []
== END 2018-12-20 23:59 ==
LOC: BHIOP 09:00
PROVIDERS: Family Provider Physician Assistant; PCP Physician Assistant; Referring Provider Psychiatry & Neurology Psychiatry; Visit Provider Psychiatry & Neurology Psychiatry
DX: F31.9 Bipolar disorder, unspecified (principal); F41.1 Generalized anxiety disorder; Z72.89 Other problems related to lifestyle
CPT/HCPCS: H0035; 90832; 90837; 90853

== ENCOUNTER 2018-12-24 09:00 | Outpatient (RCR) | payer OTHER, SELFPAY ==
--- NOTE | 2018-12-24 10:21 | BH.SGPN.GN ---
Behaviors/Verbalizations/Mental Status: [Client alert and oriented, casually dressed and appropriately groomed. Eye contact good. Motor activity appropriate. Speech within normal limits. Affect congruent, mood anxious and dysthymic. Thoughts linear, logical, no signs of hallucinations or delusions. ] Client Response/Progress/Benefit: [Client responded well to session, able to contribute to discussion and nodding as others discussed thoughts throughout. Client indicated connecting with the topic of cognitive distortions and shared personally struggling with distorted thought patterns. Client reported connecting with the potential impacts unmanaged negative automatic thoughts can have on mental health and functioning and expressed relating to examples of the potential impacts on reinforcing sx of depression. Client did well to work with the group on defining the various types of cognitive distortions and ways they have impacted mental health in the past. Client reported connecting with distortions of personalization, disqualifying the positive, and jumping to conclusions. Client reported that she struggles with ?setting myself up to fail? as a result of jumping to conclusions. Appeared to benefit from increasing awareness of cognitive distortions and how they can impact emotions and behaviors. Client continues struggle with unrealistic expectations of herself resulting in increased use of self-deprecating statements; she has however been working to increase awareness and ability to challenge these thoughts. Client to continue IOP to decrease anxiety and depression, continue to promote healthy change behaviors, improve self-esteem, as well as prevent decompensation. ] Narrative Note: []
--- NOTE | 2018-12-24 11:20 | BH.MDN_ITS ---
Multi-Disciplinary Note - Note 45-min Individual Time Started:: 12:01 Date: 12/24/18 Purpose of session/treatment goals addressed:: Purpose of this session was to assess current symptoms, stressors, and treatment goal progress. Another purpose was to discuss strategies for managing emotions in the workplace. Eye Contact:: Good, Other - tearful throughout discussion Motor Activity:: Appropriate Appearance:: Neat, Casual Speech:: Appropriate Mood:: Anxious, Dysthymic Affect:: Full Thoughts:: Linear, Logical, No evidence of hallucinations/delusions noted Staff Interventions:: Therapist asked open ended and furthering questions to elicit additional information regarding current sx, stressors, and tx goal progress. Provided empathic responses and supportive feedback. Utilized VA techniques to elicit change behaviors. Aided pt in development of occupational mental health coping plan to maintain emotion regulation in the workplace. Client Response:: Pt responded well to session, actively engaged throughout. She reports that this was her first week back to work and that it has so far gone ?better than expected?. She discussed applying skills learned in IOP tx when feeling overwhelmed or dismissed by her boss. Pt went on to indicate specifically applying deep breathing techniques which she found to be beneficial. Notes that although her first week back was easier than she had expected, she did still struggle with significant anxiety and urges to lash out in anger when feeling her boss was dismissing her concerns or giving her more work than she could manage. Pt shared taking a moment to give herself a break when experiencing increase anxiety and described going to the bathroom to cry and recollect herself. Pt discussed at times forgetting what skills might be helpful in the workplace due to feeling overwhelmed. Did well to provide insight regarding potential thought distortions impacting emotion regulation as well. Identified use of catastrophizing and personalization. Spent remainder of session working to identify strategies with therapist on thought reframing, distress tolerance, and self-soothing. Risks/Concerns:: No risks or concerns noted. Pt denies active SI, plan, or intent as of this date 12/24/18. Progress Toward Goals/Plan:: Progress noted in regards to improved confidence and ability to return to work. Pt additionally discussed increased ability to regulate emotions in workplace without lashing out verbally towards fellow co- workers. She reports some struggles in managing anxiety while at work however was able to apply some healthy distress tolerance skills, would benefit from continued focus in this area to improve consistency. Pt notes improved communication with who is her primary support. Additionally, pt notes ongoing difficulties in challenging negative self-talk statements and would benefit from continued focus in this area as well. Plan is to continue in IOP to maintain safety, prevent decompensation, and help with ongoing transition back to work. Time Stopped:: 12:45
--- NOTE | 2018-12-24 11:25 | BH.SGPN.GN ---
Behaviors/Verbalizations/Mental Status: []Eye contact is good. Motor activity is appropriate. Appearance is casual. Grooming good. Speech is Appropriate. Mood is dysthymic. Affect is congruent. Thoughts are linear and logical. No evidence of psychosis. Client Response/Progress/Benefit: []Pt active participant during session AEB pt providing contributions throughout group session and engaging in activities. Pt worked cooperatively with peers during group activity. Pt related with peers comments about importance of needing to have awareness and put forth the effort to defeat distorted thought patterns. Pt reported a distorted thought she has is no one likes me Pt identified this thought makes her feel sad and alone, Pt identified her thought is the cognitive distortion mindreading. Pt able to reframe distorted thought to My thoughts do not think for everyone and there are people in my life that do like me. Pt seemed to benefit from increased awareness of cognitive distortions and practicing reframing distorted thoughts. Pt to continue IOP level of care to decrease depression, continue to challenge distorted thoughts and prevent decompensation. Narrative Note: []
--- NOTE | 2018-12-25 09:00 | BH.SGPN.GN ---
Behaviors/Verbalizations/Mental Status: [] Eye contact is good. Motor activity is appropriate. Appearance is disheveled. Speech is Appropriate. Mood is depressed. Affect is flat. Thoughts are linear and logical. No evidence of psychosis. Reviewed daily check in sheet and pt notes 1/5 for suicidal thoughts and 0/5 for intent. Client Response/Progress/Benefit: [] Pt was an active participant in group discussion. Emotion for today is stressed. Daily symptom tracker notes 5/5 for anxiety and 4/5 for hopelessness.Some mental health wins are that she attend AA yesterday. She is writing and trying other forms of activities to keep busy and engaged. Notes glimpses of happiness however a majority of her day is depressed, stress, worried, and fearful. Ruminations. Intrusive thoughts. Irritability. Some progress noted. Will continue in IOP to prevent decompensation, increase healthy coping, and improve functioning to return to work. Narrative Note: []
--- NOTE | 2018-12-25 10:10 | BH.SGPN.GN ---
Behaviors/Verbalizations/Mental Status: []Client alert and oriented, casually dressed and groomed. Eye contact good. Motor activity appropriate. Speech within normal limits. Affect constricted, mood anxious and dysthymic. Thoughts linear, logical, no signs of hallucinations or delusions. Client Response/Progress/Benefit: []Client active participant as shown by client?s contribution to discussion and helpful insight. Client agreed with peers that self-care is important because challenging to care for others if don't care for self. Client participated in the discussion of the common myths about self-care including self-care is selfish, self indulgent, pampering self, and always fun. Client identified coming to IOP as self-care because taking time for herself to improve mental health. Client engaged in activity and able to connect how sometimes to make self-care a priority. Client seemed to benefit from increased awareness of the importance of self-care. Client showing progress as shown by her report of utilization of coping skills and ability to challenge distorted thoughts. Will continue tx to maintain gains, continue to use healthy coping skills, and prevent decompensation. Narrative Note: []
--- NOTE | 2018-12-25 11:15 | BH.SGPN.GN ---
Behaviors/Verbalizations/Mental Status: [Client alert and oriented, neatly dressed and appropriately groomed. Eye contact good. Motor activity appropriate. Speech within normal limits. Affect congruent, mood anxious, depressed. Thoughts linear, logical, no signs of hallucinations or delusions. ] Client Response/Progress/Benefit: [Pt responded well to session, actively listening and willing participant in both discussion and worksheet activity. Worked with the group to further process the activity and shared that without self-care it is hard to manage mental health and can lead to burnout. Pt engaged in the discussion and self-assessment of the different areas of self-care, noting she is not used to practicing self-care as she has always pushed things down or relied on unhealthy skills for coping with her stressors. Pt reports connecting with discussion on the mental health effects of not making self-care a priority. Pt set a goal to improve in the area of social self-care as she has not reached out to supports in quite some time. Pt?s goal is to reach out to her friend Jacquelyn this week. Pt appeared to benefit from increasing awareness of how she can improve her self-care balance. Pt progress noted in her ability to identify impact current lack of self-care activities has had on mental health and indicates beginning to use grounding skills prior to going in to work to reduce frustrations. Recommended continued IOP to continue to reduce depression, increase emotion regulation skills, and prevent decompensation.] Narrative Note: []
--- NOTE | 2018-12-31 09:02 | BH.SGPN.GN ---
Behaviors/Verbalizations/Mental Status: []Client alert and oriented, disheveled appearance. Eye contact good. Motor activity appropriate. Speech within normal limits. Affect full, mood euthymic. Thoughts linear, logical, no signs of hallucinations or delusions. Reviewed client?s symptom tracker, no risk for suicidal ideation, plan, or intent as of 12/31/18. Client Response/Progress/Benefit: []Client responded well to session, providing supportive statements to peers. Client reports feeling ?even and neutral? today. Client shared ?nothing is bothering me today.? Client identified her mental health wins today which included making it through work without ?freaking out? or personalizing when others became upset. Client reported she has been using visualization to help client feel calmer and reduce anxiety. Client stated her stressor today is that she has not been sleeping the greatest. Client appeared to benefit from reflecting on her generalization of coping skills to manage daily stressors and symptoms. Progress noted as client reports improved mood and use of coping skills. Will continue IOP tx to promote gains and reduce the intensity of symptoms.?
--- NOTE | 2018-12-31 10:07 | BH.SGPN.GN ---
Behaviors/Verbalizations/Mental Status: [Client alert and oriented, casually dressed and appropriately groomed. Eye contact good. Motor activity appropriate. Speech is soft, normal rate. Affect congruent, mood dysthymic, anxious. Thoughts linear, logical, no signs of hallucinations or delusions. ] Client Response/Progress/Benefit: [Client responded well to session, actively listening throughout discussion but remained a mostly passive participant. Client commented on quote of the day and indicated that taking the easy path can ?lead to a deeper depression?. She appeared to connect with the topic of personal pitfalls and how they can prevent mental health progress. Client identified barriers to making mental health progress as; lack of motivation, negative thoughts, isolating, and difficulties regulating emotions. Client connected with examples of a personal pitfalls identified by group. Client participated in the group activity and did well to challenge herself not to give up when struggling. Client shared that the support of the group and making adjustments such as sitting down when she became tired helped her to cope in the moment and keep from quitting. Progress noted in increased positive mood and reports of improved ability to use emotion regulation skills to prevent pitfalls. Client appeared to benefit from increasing self-awareness and applying in the moment coping. Client to continue IOP to prevent decompensation, continue to promote application of emotion regulation skills, and decrease anxiety.] Narrative Note: []
--- NOTE | 2018-12-31 13:23 | PCM.BH.PN ---
Progress Note Progress Note: History of Present Illness/Interim History: Patient is a 42-year-old female who is seen in follow-up as she participates in the IOP program at [facility]. I last saw her 2 weeks ago. Her mood she describes as much better and her back pain is improved since starting Cymbalta. She tolerated the weaning of the Paxil quite well. She is having panic attacks only about once a week now. Her sleep has improved with melatonin and she is getting about 6 hours of sleep at night now. She returned to work 1 week ago and is doing okay. She denies any suicidal thoughts or thoughts of self-harm. She is very pleased that her response to the Cymbalta so far. [] Current Psychiatric Medications: Paxil 20 mg p.o. daily for the last 2 weeks (weaning). Cymbalta 30 mg p.o. daily (x2 weeks). She is also on Abilify 7.5 mg po daily and gabapentin 300 mg p.o. 3 times daily [] [] Mental Status Examination: [] She is a 42-year-old female who appears normal for stated age and is casually dressed and groomed with good hygiene. She has no psychomotor agitation or retardation. Her gait is a little slower than normal but improved since last visit. She does not have to use her cane quite as much. Speech is normal rate and rhythm with no pressure. Eye contact is good. Mood is much better but still slightly depressed. Affect is euthymic today. Thought process is goal-directed and organized. Thought content: No evidence of suicidal homicidal ideation, no evidence of hallucinations or delusions. Reality testing is intact. Judgment is intact and insight is decent. Impulsivity is low. 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 The patient will decrease Paxil to 10 mg p.o. daily for 1 week and then stop it. She will increase her Cymbalta to 60 mg p.o. daily. She will continue her melatonin, Abilify and gabapentin. She is able to contract for safety and if she is not in any time she will call the IOP or go to the emergency room. She understands the risks options possible complications and side effects of her medications and accepts these. I will see the patient in 2 weeks. To see how she is tolerating being off of the Paxil which she will DC in 1 week.
--- NOTE | 2018-12-31 14:36 | BH.NOTE ---
BH: Inpatient Note - Notes Behavioral Health Inpatient Note: Per written order from Dr. Guerrero, the following prescription was called into [facility] pharmacy in [place], [place]: Cymbalta 60mg PO daily #30, NO refills Jeff Clark, MSN, RN
--- NOTE | 2019-01-01 09:00 | BH.SGPN.GN ---
Behaviors/Verbalizations/Mental Status: [] Eye contact is good. Motor activity is appropriate. Appearance is casual. Speech is Appropriate. Mood is anxious. Affect is congruent. Thoughts are linear and logical. No evidence of psychosis. Reviewed daily check in sheet and no reports of suicidal ideations or intent. Client Response/Progress/Benefit: [] Pt participated at times during the group discussion. Daily tracker indicates reduced scores 2/5 for anxciety, panic, and agitation. Sleep has been improved. Increased independence and less reliance on cane. Utilizing skills on a consistent basis. Spending more time with support. Time spent with supportive in positive as well. Work is getting more manageable as well. Overall progress noted. Benefited from group support, encouragement, and feedback. 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 Narrative Note: []
--- NOTE | 2019-01-01 10:05 | BH.SGPN.GN ---
Behaviors/Verbalizations/Mental Status: []Client alert and oriented, casual in appearance. Eye contact good. Motor activity appropriate. Speech within normal limits. Affect congruent, mood euthymic. Thoughts linear, logical, no signs of hallucinations or delusions. Client Response/Progress/Benefit: []Client attentive and engaged throughout session. Worked together with the group to define and identify differences between internal and external conflict. Group identified and discussed consequences of ignoring conflict which included: increased depression, unresolved anger, increased anxiety, complacency, resentment, and conflict worsening. Client stated when she ignores conflict it results in unresolved anger. Client worked with group to identify barriers to addressing conflict. Client reported I just don't want to be noticed which is why I don't address conflict. Attentive during psychoeducation on different conflict styles such as avoiding, accommodating, competing, and collaborative. Benefited as she was able to identify and define conflict as well as increase awareness of how conflict style impacts mental health. Progress noted with pt's mood appearing improved and reporting utilization of healthy skills. Will continue IOP tx to prevent decompensation, continues use of healthy coping skills, and challenge distorted thought patterns. Narrative Note: []
--- NOTE | 2019-01-01 11:05 | BH.SGPN.GN ---
Behaviors/Verbalizations/Mental Status: []Client alert and oriented, casually dressed and groomed. Eye contact good. Motor activity appropriate. Speech within normal limits. Affect congruent, mood euthymic. Thoughts linear, logical, no signs of hallucinations or delusions. Client Response/Progress/Benefit: []Client responded well to session, active participant. Contributed to ongoing discussion of the different conflict resolution styles, drawbacks, and appropriate times of use. Client indicated connecting most with the ?avoiding? and ?accommodating? approaches when dealing with conflict.? Client reported she has learned to go with the flow at work rather than ?stir the pot.? Client stated this approach has been better for her mental health. Client engaged in the activity and did well to practice using a collaborative approach as shown by her willingness to share ideas with peers rather than accommodating to the group?s choice. Client appeared to benefit from increasing awareness of her personal conflict resolution style and from learning ways to increase healthy conflict resolution. Progress noted as client reports improved mood and generalization of calming skills. Will continue IOP tx to promote gains and further reduce symptoms.
--- NOTE | 2019-01-01 15:32 | BH.MDN ---
Multi-Disciplinary Note - Note 45-min Individual Time Started:: 12:07 Date: 01/01/19 Purpose of session/treatment goals addressed:: Purpose of this session was to review current symptoms, stressors, and progress towards tx goals. Another purpose was to identify areas for continued focus and small goals to continue to promote progress. Additional topics: Reviewed DSM cross-cutting scales, discussed STOPP tool Eye Contact:: Good Motor Activity:: Appropriate Appearance:: Casual Speech:: Appropriate Mood:: Euthymic, Anxious Affect:: Full Thoughts:: Linear, Logical, No evidence of hallucinations/delusions noted Staff Interventions:: Therapist asked open-ended and furthering questions to elicit information on pt current symptoms, stressors, and perceptions of treatment goal process. Applied strength?s-based approaches to promote self-efficacy, aid pt in identifying strengths, and continue to promote gains. Therapist utilized [place] techniques to identify where she has made gains, areas for continued growth, potential barriers, and small goals to continue application of change behaviors. Reviewed DSM cross-cutting scales with patient. Client Response:: Pt in a positive mood and receptive of meeting with this therapist. She indicated ?I?ve really started to notice a difference? and jokingly expressed ?I don?t think I?ll even cry today?. Reports identifying most improvement in her ability to regulate her emotions while at work, increased willingness to communicate with her about her mental health needs and concerns, as well as decreased depression. Pt attributes this to ?I?m using my toolbox? and went on to describe skills she has regularly been referring back to, such as: reminding herself ?This is a them problem and not a me problem?I don?t have to respond?, slowing down and not trying to solano tasks as much, taking more planned breaks, reaching out to her [id number], and listening to [place] music when she feels down or ?off?. Shared increased ability to challenge negative thoughts and identify cognitive distortions when interacting with others; however, continues to struggle to do so when using self-deprecating talk while alone. Shared her has been more empathetic and understanding since she began IOP program and noted ?He tells me ?Juana, H[employer] if I?m irritable?. Shared increased closeness in the relationship. Pt noted fears that she will begin to struggle again as her is increasing his work hours and will be home less often. She did well to identify a need to expand her support network and worked with therapist to brainstorm strategies for doing so. Pt created small goal of reaching out and making plans with one friend she has not talked to in awhile by next Saturday. Talked at length regarding fear about the future and not wanting to revert to previous isolative and unhealthy coping behaviors. Identified continued desire to improve conflict resolution skills and was receptive of learning the DBT distress tolerance technique of STOPP to regulate herself prior to responding. Risks/Concerns:: o risks or concerns noted. Pt denies active SI, plan, or intent as of this date, 01/01/19 Progress Toward Goals/Plan:: Progress noted per pt report as well as in observable improvements with emotion regulation. Pt completed DSM cross-cutting scales as this is week 4 of her IOP treatment. When compared to her DSM scores on admission pt showed a 49% decrease in symptoms. She showed a decreased in all categories including depression and anxiety. Overall progress noted and engagement and skill application. Pt agreeable with decrease days in IOP weekly from 3 to 2 days per week. Refer to treatment plan review for more information. Time Stopped:: 12:47
--- NOTE | 2019-01-01 15:46 | BH.MTP_ITS ---
Treatment Plan Review Date of Admission:: 12/03/18 Date of Treatment Plan Review:: 01/01/19 Admitting Diagnoses:: Bipolar II disorder most recent episode depressed, severe without psychosis. Generalized anxiety disorder, alcohol use disorder in full remission. Current Diagnoses:: Bipolar II disorder most recent episode depressed, severe without psychosis. Generalized anxiety disorder, alcohol use disorder in full remission. Patient's Response to Treatment:: Pt appears to be responding well to treatment, this is evidenced by consistent attendance, active participant in both group and individual sessions, and more consistent application of skills learned outside of treatment environment. Pt presents as motivated to make positive changes in her life and has begun to do so through more openly discussing mental health with her , increasing her willingness to reach out to other supports, and active application of emotion regulation skills which pt reports has increased ability to manage occupational stressors. Pt has followed through with all assignments and small goals identified in session. Status of Current Problems and Symptoms: Pt continues to report progress in her ability to manage symptoms of depression and anxiety on a daily basis. She reports that her MH symptoms continue to impact her daily functioning, though to a lesser degree and she feel more capable of managing them. Pt is able to identify warning signs for irritability, anxiety, and depression which has increased her ability to recognize when to apply a calming or self-soothing skill. Pt reports no longer taking comments made in the workplace personally and shared that when these occur she reminds herself ?this is their problem and it?s not about you?. Pt continues to report periods of isolation when not in group or with her and indicates this is primarily due to ongoing social anxiety. Despite continued struggles with utilizing her social supports, pt reports increased motivation to work on this area. Pt completed the DSM-5 Cross Cutting Scales at admission and again today to further assess for tx progress. Per this scale pt had a 49% reduction in symptoms. Pt areas of reduction include: 71% reduction of depression, 58% reduction of anxiety, and 33% reduction of anger. Thoughts of hurting herself decreased from more than half the days of the week to none, not at all?. Pt reports increased confidence in her ability to manage emotions, however continues to struggle at times with negative self-talk. Also reports increase in willingness to ask for help which has in turn increased her communication with her . While tx progress has been noted pt continues to reports some difficulties with ruminations, social anxiety causing isolation and avoidance, as well as fear of failure. Pt progress has been discussed with clinical team and it is recommended that she continue in IOP to prevent decompensation, maintain gains, decrease isolation, continue to stabilize mood, and improve ability to utilize supports. Problem #1 Problem Name:: Depression Status of Goals:: Obj #1 Pt has identified more than 3 depressive thinking patterns that reinforce depressive symptoms, however she struggles with consistent application of thought challenging techniques. Continues to struggle with self-deprecating thoughts as well which impact pt self-esteem levels. Obj #2 Goal complete. Pt has identified several triggers that impact her depression or result in increased emotion dysregulation. She is able to identify skills to calm herself and improve ability to self-regulation. Pt reports that self-talk, looking at funny pictures, listening to [place] music, deep breathing, and 5 senses grounding technique are most helpful. Reports at times forgetting to ?use the tools in my toolbox? but is improving in consistency. Team Recommendations:: Obj #2 is met. Will continue to work on consistent application of skills, completing a relapse prevention plan, and promoting use of cognitive restricting through individual and group counseling. Problem #2 Problem Name:: Anxiety Status of Goals:: Obj #1- Partially complete. Able to identify calming skills and problem solving skills for anxiety and is actively applying such skills prior to going to work, throughout the work day, and before returning home. Pt reports increased functioning in the workplace and decreased anxiety and irritability as a result. She however, reports struggling at times to utilize these skills in her personal life, especially when considering reaching out to her supports. Continues to struggle with social anxiety which impacts her daily functions, though is displaying marked improvement from admission. Team Recommendations:: Group counseling continues to be effective and is aid pt in normalizing pro social behaviors while practicing in the moment coping. I ndividual sessions will focus on developing concrete step by step plan to manage anxiety, reduce isolation, and increase social supports.
--- NOTE | 2019-01-07 09:01 | BH.DR.ITP ---
Initial Treatment Plan - Patient Information Visit Information: ADMISSION DATE: EXPECTED LOS: 4-6 weeks - Problems/Symptoms Problem #1:: Depression Symptom:: Sadness, negative thoughts, isolating Problem #2:: Anxiety Symptom:: Rumination
--- NOTE | 2019-01-07 09:10 | BH.SGPN.GN ---
Behaviors/Verbalizations/Mental Status: [] Eye contact is good. Motor activity is appropriate. Appearance is casual. Speech is Appropriate. Mood is euthymic. Affect is congruent. Thoughts are linear and logical. No evidence of psychosis. Reviewed daily check in sheet and no reports of suicidal ideations or intent. Client Response/Progress/Benefit: [] Pt was an active participant in group discussion. Emotion for today is excited. Notes decreased pain related to new medication which has resulted in not needing her cane. Work is going well. Proud of herself and her accomplishments with managing her anger, depression, and anxiety at work. She went a whole work day w/o utilizing her PRN medications. She has changed her perspective on work and the people she works with through radical acceptance and boundaries. Notes that she is no longer letting them take up space in her head which has helped her appreciate her time off more. Increased hope and confidence to manage her emotions. Benefited from group encouragement, support, and praise. Will continue in IOP to maintain safety, prevent decompensation, and provided support through transition back to full-time work. Narrative Note: []
--- NOTE | 2019-01-07 10:11 | BH.SGPN.GN ---
Behaviors/Verbalizations/Mental Status: [Client alert and oriented, casually dressed and groomed. Eye contact good. Motor activity appropriate. Speech within normal limits. Affect congruent, mood anxious and dysthymic. Thoughts linear, logical, no signs of hallucinations or delusions. ] Client Response/Progress/Benefit: [Pt responded well to session, attentive and providing some input throughout, though mostly passive participant. Pt connected with discussion on different types of anxiety, as well as the difference between ?normal? anxiety and anxiety disorders. Pt helped the group identify examples of the various ways anxiety manifests and symptoms associated with thoughts, physical symptoms, and safety behaviors. Pt gained awareness of personal physical symptoms which included: pulling hair, clenched jaw, crying, overeating, and shaking. Pt defined safety behaviors as ?what we do to stop anxiety from happening/getting worse?. She also identified safety behaviors she has engaged in that provide short term relief but increase anxiety over time. Pt?s safety behaviors included: isolate, decreased talking, over planning, and lashing out. Client appeared to benefit from gaining insight to safety behaviors and how anxiety manifests itself, as well as harmful impact of safety behaviors on mental health. Client appears to be progressing with increasing awareness of her symptoms and ability to use healthy coping skills in those moments. Will continue IOP to promote continued skill application, maintain gains, and prevent decompensation.] Narrative Note: []
--- NOTE | 2019-01-08 09:05 | BH.SGPN.GN ---
Behaviors/Verbalizations/Mental Status: []Client alert and oriented, casually dressed and groomed. Eye contact good. Motor activity appropriate. Speech within normal limits. Affect congruent, mood dysthymic. Thoughts linear, logical, no signs of hallucinations or delusions. Reviewed client?s symptom tracker, no risk for suicidal ideation, plan, or intent as of 01/08/19. Client Response/Progress/Benefit: []Client responded well to session, engaged throughout session. Client reports feeling ?remorseful? today for watching too much TV yesterday. Client stated she has been sick which makes client?s energy levels decrease. Client receptive to feedback from group on self-compassion and not judging oneself too harshly as it can lead to rumination. Client reported she has been using healthier coping skills which has helped her manage anxiety better. Client shared she has been ?healthy cleaning? whenever she feels anxious. Client reported she has also been more motivated now that her mood is improving. Client appeared to benefit from reflecting on her positives and challenging self-judgement. Will continue IOP to promote mood stability and further combat distortions.
--- NOTE | 2019-01-08 10:10 | BH.SGPN.GN ---
Behaviors/Verbalizations/Mental Status: [] Eye contact is good. Motor activity is appropriate. Appearance is casual. Speech is Appropriate. Mood is euthymic. Affect is full. Thoughts are linear and logical. No evidence of psychosis. Client Response/Progress/Benefit: [] Participated at times during discussions providing some insight. Attentive during psychoeducation on differences between fixed and growth mindset. Worked with group to identify how a fixed mindset can impact our mental health which included; not trying new coping skills, believing we can't get better, keeping us stuck, reinforcing fear of failure, decreasing motivation, and avoiding challenges. Group identified the impact that a growth mindset can have on mental health which includes; More likely to embrace challenges, encourages us to try new skills, learn from setbacks rather than ruminate on them, encourages us to believe in ourselves. Pt was able to identify some examples of fixed mindset that she often has. Benefited from group by increasing awareness of how one's mindset impacts our mental health. Narrative Note: []
--- NOTE | 2019-01-08 11:13 | BH.SGPN.GN ---
Behaviors/Verbalizations/Mental Status: []Client alert and oriented, casual in appearance. Eye contact good. Motor activity appropriate. Speech within normal limits. Affect congruent, mood euthymic. Thoughts linear, logical, no signs of hallucinations or delusions. Client Response/Progress/Benefit: []Pt active participant AEB pt providing input during discussion, however pt did appear to listen attentively to peers. Pt appeared to connect with the different relaxation skills discussed. Pt completed worksheet identifying what relaxation skills currently use to manage anxiety and identified what skills she would be willing to try to help manage anxious symptoms. Pt identified she is willing to try the following relaxation skills: smelling calming scents, body scan, progressive muscle relaxation, prayer, chair yoga, grounding, mindful shower. Pt seemed to benefit from increased awareness of healthy skills to manage anxious symptoms and identifying skills willing to practice outside treatment environment. Pt to continue IOP level of care to maintain gains, continue use of healthy coping skills, and prevent decompensation. Narrative Note: []
--- NOTE | 2019-01-08 11:13 | BH.SGPN.GN ---
Behaviors/Verbalizations/Mental Status: [Client alert and oriented, neatly dressed and groomed. Eye contact fair to good. Motor activity appropriate. Speech within normal limits. Affect congruent, mood euthymic. Thoughts linear, logical, no signs of hallucinations or delusions. ] Client Response/Progress/Benefit: [Pt attentive, engaged during discussion and activity. She contributed to discussion on how fixed mindset thoughts experienced in the challenge activity initially impacted ability to complete the task. Pt continues to display increased contribution levels during group and expressed improved ability to apply concepts learned on her daily life which indicates progress. Indicated that her own self-doubt has resulted in fixed thinking in the past. She did well to apply cognitive restructuring to reframe previously identified fixed thoughts, transforming fixed thought of ?I am crazy, I won?t get better? to ?I have some chemical imbalances, I am not ?crazy?. I am learning and putting new tools in my toolbox?. Benefitted from discussing benefits of growth mindset and brainstorming strategies for reframing fixed thoughts. Indicated plans to further develop growth mindset by challenging herself to replace the word ?no? with ?not yet?. Recommended continued IOP tx to maintain gains, increase ability to reach out to supports and decrease isolative behaviors, as well as prevent decompensation. ] Narrative Note: []
--- NOTE | 2019-01-08 14:32 | BH.MDN ---
Multi-Disciplinary Note - Note 30-min Individual Time Started:: 12:11 Date: 01/08/19 Purpose of session/treatment goals addressed:: Purpose of this session was to assess current symptoms, stressors, and review progress in IOP. Another purpose was to discuss strategies for maintaining gains and continuing to reduce isolation by improving use of social supports. Eye Contact:: Good Motor Activity:: Appropriate Appearance:: Neat, Casual Speech:: Appropriate Mood:: Euthymic Affect:: Full Thoughts:: Linear, Logical, No evidence of hallucinations/delusions noted Staff Interventions:: Therapist asked open-ended and furthering questions to gather information regarding pt current sx, stressors, and treatment goal progress. Provided supportive feedback and commended pt progress in applying skills learned. Utilized [place] techniques to continue to elicit change behaviors and promote gains made. Discussed strategies for reducing social anxiety and decreasing isolation. Client Response:: Pt receptive of session, actively engaged throughout discussion. She reports continuing to see progress in her ability to regulate her emotions and complete small mental health goals. Pt shared successfully achieving her most recent goal of physically spending time with a support person who is not her . Discussed feeling proud of herself as she often speaks with supports over the phone but has not physically met up with a support person in three years. Pt did well to reflect upon skills used to ease anxiety and successfully complete her goal. Indicated that positive self-talk via reminding herself ?this is going to be fun? and ?you?re going to be glad you did it afterwards? was a barba factor in her success. Additionally, pt noted that this had been a couple?s game night, so she was able to slowly transition back to hanging out with others by having her present this time. Discussed feeling ready to spend time with a friend without her there for support and indicated plans to ask a friend out for lunch this week. Remainder of session was spent discussing potential barriers to completing this goal and strategies for success. Pt identified that reminding herself of all the benefits of doing so would be helpful, noted that setting up a date and time for lunch would increase odds of her following through as she would feel more obligated, and that telling her about her goal would help to hold her accountable. Pt reports feeling she will be ready to discharge from IOP program next week if able to complete identified goals and create an aftercare healthy coping plan. Risks/Concerns:: None reported. Pt denies any active SI, plan, or intent as of 01/08/19. Progress Toward Goals/Plan:: Progress noted. Symptoms reduction and transition back to work is going well and pt reports improved emotion regulation and decreased agitation while in the workplace. Reports increased communication with her and reduced isolation. Consistent attendance in IOP. Active participant in both individual and group sessions. Struggles with challenging negative thoughts and use of self-deprecation. Does well to complete all assigned homework and reports improved ability to engage in pro social behaviors. Will continue in IOP to prevent decompensation, help with aftercare planning, and increase healthy coping skills. Time Stopped:: 12:48
--- NOTE | 2019-01-14 09:02 | BH.SGPN.GN ---
Behaviors/Verbalizations/Mental Status: []Client alert and oriented, casual dress, hygiene tended to. Eye contact good. Motor activity appropriate. Speech within normal limits. Affect congruent, mood euthymic and positive. Thoughts linear, logical, no signs of hallucinations or delusions. Reviewed client?s symptom tracker, no signs of suicidal ideation, plan, or intent as of today. Client Response/Progress/Benefit: []Pt was an active participant in group discussion, providing input and openly processing with the group. Emotion for today is excited. Pt stated a stressor is having nightmares that are disrupting her sleep. Pt noted progress as being able to manage her emotions at work for the past two weeks. Pt stated she has been challenging her distorted thoughts by reminding herself that other people's problems are their problems. Pt reported she has not been personalizing while at work which has decreased stress level and irritation. 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 Progress noted in application of healthy coping skills and strategies outside of treatment environment. Continued IOP tx recommended to maintain gains, prevent decompensation, and continue to identify and reframe distorted thoughts. Narrative Note: []
--- NOTE | 2019-01-14 10:05 | BH.SGPN.GN ---
Behaviors/Verbalizations/Mental Status: [Client alert and oriented, casually dressed and appropriate grooming. Eye contact good. Motor activity appropriate. Speech within normal limits. Affect congruent, mood anxious and euthymic. Thoughts linear, logical, no signs of hallucinations or delusions. ] Client Response/Progress/Benefit: [Client was an active participant in group discussion and activity. Engaged during discussion, actively listening as group reflected on the quote and noted agreement with others discussing change as uncomfortable but necessary. Indicated feeling this way about beginning IOP tx as asking for help was a change for her. Worked with the group to identify benefits to making changes in our lives which included: improving one?s mental health, increasing confidence, personal growth, and reducing unhealthy coping skills. Group identified barriers to change or what keeps us from making changes which included: it is easier to not change, lack of motivation, past negative experiences, lack of awareness as to how to make changes, limited support, negative thinking, and fear. Client participated along with group in activity where they identified and discussed the emotions related to change. Client expressed that change makes her feel anxious as she doesn?t know what to expect and does not like making decisions. She was attentive during psychoeducation on the change process and provided input regarding different emotions that may be experienced throughout the change process. Pt benefited from increased awareness and understating of emotions, benefits, and barriers related to change. Progress noted as shown by client?s report of reduction of depression and irritability since beginning IOP tx. Will continue IOP tx to promote gains, continue to improve mental health sx management, and reinforce healthy coping skills.] Narrative Note: []
--- NOTE | 2019-01-14 11:10 | BH.SGPN.GN ---
Behaviors/Verbalizations/Mental Status: []Client alert and oriented, neatly dressed and groomed. Eye contact good. Motor activity appropriate. Speech within normal limits. Affect congruent, mood euthymic. Thoughts linear, logical, no signs of hallucinations or delusions Client Response/Progress/Benefit: []Client responded well to session, active participant and providing positive insight to discussion. Client participated in the activity and processed emotions and barriers associated with making change. Client appeared to connect with discussion on weighing the pros and cons associated with change and benefited from learning to do so through use of decisional balance sheet. Identified a change she would like to make to improve mental health as: giving her the control of their finances. Client shared ?this is hard for me to admit, but I get us in trouble.? Client reported potential benefits of change as: less stress, less lying to her , and her bills with ?actually? get paid. While the costs of not making the change included: anxiety over money, fear of spending impulsively, and lying to her . Progress noted in ability to identify how making this change may promote additional healthy behaviors and thinking patterns. Recommended one more day of IOP tx to promote maintenance of healthy coping skills and establish aftercare.
--- NOTE | 2019-01-14 13:39 | PCM.BH.PN ---
Progress Note Progress Note: [] History of Present Illness/Interim History: Patient is a 42-year-old female who is seen in follow-up at the [facility] IOP program. The patient was last seen 2 weeks ago and is seen in follow-up today for her medication changes and as she completes the IOP program. She has been off the Paxil for 1 week now and had no withdrawal symptoms or any other side effects during the weaning. She is tolerating the Cymbalta well and her mood and anxiety have improved since starting back on it. She feels she is really benefited from the IOP program. She has learned useful skills that she plans on using to help her deal with her issues. She stated that she felt so bad when she first got out of the hospital and since doing the IOP program she feels much much better. Objective: She is a 42-year-old female who appears normal for stated age and is casually dressed and groomed with good hygiene. Her mood is good and her speech is normal rate and rhythm with no pressure. She has good eye contact. [] This is goal-directed and organized. Thought content: No evidence of suicidal or homicidal ideation. No evidence of hallucinations or delusions. Concentration is much improved as is her anxiety. Judgment is intact and insight is good. Impulsivity is low. Current Psychiatric Medications: [] Cymbalta 30 mg p.o. daily, Abilify 7.5 mg p.o. daily, gabapentin 300 mg p.o. 3 times daily. She has been off of all Paxil for 1 week now. [] Diagnoses: [] [place] I: [] Bipolar 2 disorder most recent episode depressed, severe without psychosis. Generalized anxiety disorder. Alcohol use disorder in full remission since 2002. [place] II: [] B traits [place] III: [] Chronic back pain [place] IV: Work, financial and primary support issues Plan: [She will continue on her current medication regimen and will follow up with her outpatient psych and medic medical providers as scheduled. She is planning to be discharged from the [facility] after tomorrow's session. Staff is in agreement with the patient and myself that the patient seems ready to be discharged from the [facility]. She understands the risks, options, possible side effects and complications of the medication she is on and she understands and accepts these. She felt safe during this interview and if at any time she does not feel safe she will contact the IOP or go to the emergency room or contact her other providers.]
--- NOTE | 2019-01-14 15:01 | BH.NOTE ---
BH: Inpatient Note - Notes Behavioral Health Inpatient Note: Per written order from Dr. Helms, the follow prescriptions were called into [facility] pharmacy in [place], [place]: Cymbalta 60mg PO daily, #30, NO refills Jeff Clark, MSN, RN
--- NOTE | 2019-01-15 08:38 | BH.AFTERPLAN ---
Aftercare Plan - Demographics Treatment End Date:: 01/15/19 Psychiatrist:: Trudy Helms Psychiatrist Office #:: [phone] [facility]/IOP Therapist:: Honey Caballero Therapist Phone #:: [phone] - Medications Home Medications: Home Medications Aripiprazole [Abilify] 7.5 mg PO DAILY 12/05/18 traZODone [Desyrel] 100 mg PO QHS PRN 12/05/18 Duloxetine Hcl [Cymbalta] 60 mg PO DAILY 12/17/18 Gabapentin [Neurontin] 300 mg PO TID 12/17/18 - Plan Details Progress/Aftercare Plan Details:: Kathleen has shown tremendous strides while in the IOP program and has made so much progress in managing her mental health. Kathleen has done well to begin implementing healthy coping skills to health better manage depression symptoms and irritability. She has demonstrated consistency in using thought challenging, deep breathing, and positive self-talk in uncomfortable or frustrating situations. Kathleen has been working on reminding herself ?this isn?t about me, This is a ?them problem?? which has helped her set boundaries and regulate her emotions. Kathleen reports less isolation and improved ability to reach out to her supports. Kathleen's communication and relationship with her has improved as well. Kathleen has increased self-awareness of cognitive distortions, unhealthy coping skills, and behaviors that reinforce anxiety and depression and indicates an improved ability to challenge and replace these. Kathleen reports actively combating negative thoughts and has been paying more attention to personal wins. Additionally, Kathleen has successfully returned to work and maintained calm throughout work hours which demonstrates progress. Kathleen is beginning to work on small exposure goals to help with social anxiety and she was encouraged to continue working on this post IOP discharge. Reports goals to be able to spend time independently with her supports. She was also encouraged to continue individual counseling and psychiatric services. Great Work! Strategies for Success:: 1. AWARENESS and COMMUNICATION! Continue to practice daily check-ins with yourself and your supports. Be sure to pay attention to warning signs and triggers. Ask yourself: ?what is impacting my mood? What do I need right now to cope?? 2. Challenge negative thoughts and continue with using positive self-talk and reframing statements. Remember to ask yourself: What's the evidence against this thought? Am I personalizing something that is not about me? Is this temporary? 3. Self-care and balance! Remember life is about balance! take time to enjoy doing small things for yourself. How are you doing in all areas of self-care? How are you doing with practicing self-compassion? 4. SUPPORT! Internal support (USE THE TOOLBOX) and external support (family, friends, counseling, etc.) Pay attention to isolation and continue to use the skills that have helped you not isolate. Keep working on those small goals 5. CONSISTENCY! Consistency with medication, coping skills, and routine! 6. Review your binder! 7. set small goals and keep track of wins! 8. DO THE ANXIOUS THING! :) - Appointments Appointments/Referrals to Other Services:: 1. [facility] for individual counseling and ongoing medication monitoring. Next Counseling appt is doug 01/15 and next psychiatry appt is scheduled for 8am on January 30. 2.[employer] in [place] is always a great resource for social support. 3. Keep reaching out to your supports! Make regular coffee dates!
--- NOTE | 2019-01-15 08:49 | BH.DS_ITS ---
Discharge Summary - Demographics Date of Admission:: 12/03/18 Discharge Date: 01/15/19 Presenting Problems at Admission:: Pt is a 43 y/old, , female who was referred to the [facility] Behavioral Health IOP following inpatient admission to [facility] 11/21/18-11/28/18 for SI. Pt has a hx of depression, anxiety, and impulsivity. Previously diagnosied with Bipolar I, most recent episode depressed. Hx of PTSD. At time of admission pt reported an increase in d epressive sx over the past 2 months due to occupational stress and difficulties with managing her emotions when becoming agitated in the workplace. Pt indicated that he boss' unrealistic expectations of her job duties as her primary stressor. She was sent to Emergency Dept. by her PCP on 11/21/18 for suicidal ideation with plan to overdose or jump from a bridge. Denies active SI, plan, or intent at time of admission. Reports her family as protective factors. Hx of cutting behaviors which last occurred 1-2 weeks prior to admission. Denies current urges to self-harm. Denies HI. At time of admission pt endorsing hopelessness, helplessness, crying spells, increased appetite, decreased sleep, passive thoughts of , and irritability. Discharge Diagnoses:: ipolar 2 disorder most recent episode depressed, severe without psychosis. Generalized anxiety disorder, alcohol use disorder in full remission since 2002. Reason for Discharge:: Client has made progress towards treatment goals, reports increased ability to regulate emotions and manage depression and anxiety. Reports decreased irritability. Client also reports she has not experienced any suicidal ideations since beginning of IOP tx and has more hope for the future. Client no longer meets criteria for IOP level of care and is recommended she continue with individual outpatient services. - Treatment Progress During Treatment & Response: Client responded well to treatment as shown by her overall consistent attendance, decreased mental health symptoms, improved outlook, and increased ability to apply healthy skills learned. Client was attentive during group sessions often taking notes, and occasionally contributing to discussions. She did well to participate in each of the challenge activities and often challenged herself to work through anxieties and not to give up when the task became difficult. In individual sessions, client was receptive to learning new coping skills, challenging distortions, and setting small goals for decreasing anxiety and increasing socialization. Client additionally was able to apply reframing and positive self-talk to better regulate herself when becoming overwhelmed, especially when in the workplace. Client reports increased ability to use cognitive restructuring components. Client self-identified her progress as increased self-awareness of negative thinking, feeling less irritable, increased willingness to use supports, accomplishing more small goals, reduced anxiety, and practicing more thought challenging skills. Overall, client?s mental health symptoms decreased since admission as evidenced by her DSM-5 scores going from 53 at admission to 6 at discharge. Client?s DSM-5 symptoms for depression decreased from admission to discharge going from 7/8 at admission to 1/8 at discharge. Additionally, client?s anxiety scores decreased since admission, going from 12/12 to 2/1, and irritability scores decreased from 3/4 to 0/4 at discharge. Issues Still to be Addressed:: Client has made progress towards her treatment goals, but she can continue to benefit from ongoing therapy to reinforce healthy coping skills, combat negative core beliefs, and reduce social anxiety. Client can benefit from increasing utilization of positive supports, maintaining a healthy self-care routine, and increasing consistent application of self- regulation and healthy coping skills. Client has increased self-awareness, but now client wants to improve her self-talk and increase confidence. Client can benefit from ongoing thought challenging, small goals, opposite action, and stepping out of her comfort zone. Discharge Recommendations/Instructions:: 1. Follow up with the [facility] for individual counseling and ongoing medication monitoring. Next Counseling appt is doug 01/15 and next psychiatry appt is scheduled for 8am on January 30. 2.[employer] in [place] is always a great resource for social support. 3. Keep reaching out to your supports! Make regular coffee dates! Discharge Handout: Complete Discharge Handout with client on aftercare options and continuity of care.
--- NOTE | 2019-01-15 09:07 | BH.SGPN.GN ---
Behaviors/Verbalizations/Mental Status: [Eye contact is good. Motor activity is appropriate. Appearance is casual. Speech is Appropriate rate and tone. Mood is euthymic. Affect is congruent. Thoughts are linear and logical. No evidence of psychosis. Reviewed daily check in sheet and pt denies any active SI, plan, or intent. ] Client Response/Progress/Benefit: [Pt responded well to session, open to processing with the group. Pt indicated current emotion as ?excited? and discussed that this is due to it being her last day and reflected on improvements in her mental health since beginning IOP tx. Appeared to connect with support and encouragement provided by fellow participants. Pt identified current mental health ?wins? as successfully completing IOP tx. Additional win as planning a coffee date with a friend for this week. Current stressor indicated as trying to remember to continue to apply all the information learned following discharge from IOP; however, is doing well to remind herself to take things one at a time. Pt appearing to benefit from support and structure of group environment. She continues to make progress in application of coping skills. Recommended continued outpatient tx to prevent decompensation, maintain stability, and promote ongoing application of healthy coping skills.] Narrative Note: []
--- NOTE | 2019-01-15 10:14 | BH.SGPN.GN ---
Behaviors/Verbalizations/Mental Status: []Client alert and oriented, neatly dressed and groomed. Eye contact good. Motor activity appropriate. Speech within normal limits. Affect congruent, mood euthymic. Thoughts linear, logical, no signs of hallucinations or delusions. Client Response/Progress/Benefit: []Client responded well to session, attentive and participating in small group discussion. Group identified the benefits to setting boundaries as well as the consequences of not setting healthy boundaries. Benefits included: improved mental wellness, improved self-worth, self-love, less stress, less resentment, and avoid being taken advantage of. Group discussed the consequences of not setting boundaries which included: worsening mental health, lack of progress, and staying stuck in unhelpful situations. Client shared she struggles with trusting men, so her boundaries with men are more rigid. Client stated she also feels responsible for solving her loved one?s problems. Client attentive during discussion of the different types of boundaries and engaged in the self-assessment activity. Client able to recognize her own mental health suffers when she does not set boundaries. Client seemed to benefit from increased awareness how poor boundaries can negatively impact mental health. Client to discharge from [facility] today as she has made progress towards her treatment goals and no longer meets criteria for IOP level of care.
--- NOTE | 2019-01-16 11:20 | BH.SGPN.GN ---
Behaviors/Verbalizations/Mental Status: []Client alert and oriented, casual dress, hygiene tended to. Eye contact good. Motor activity appropriate. Speech within normal limits. Affect congruent, mood euthymic and positive. Thoughts linear, logical, no signs of hallucinations or delusions. Client Response/Progress/Benefit: []Pt responded well to session, active participant AEB providing input at times and taking notes throughout. Pt worked with group to further process the self-assessment activity. Pt participated in the discussion reviewing different boundary setting styles and reported connecting with the ?porous? boundary setting type with relation to others. Pt stated she struggles with saying no to others because doesn't like to disappoint others. Pt indicated that being porous results in her feeling worn out and unhappy, which she recognizes negatively impacts her mental health. She appeared to benefit from increasing awareness of personal boundary style and from learning ways to increase healthy boundaries. Pt progress noted as pt reports improved mood and application of emotional regulation skills outside treatment environment. Pt is to discharge from IOP today due to pt making significant treatment progress since starting IOP with decreased depressive symptoms, successfully returning to work, and overall improvement in daily functioning. Narrative Note: []
== END 2019-01-15 13:37 | disposition home or self-care (01) ==
LOC: BHIOP 09:00
PROVIDERS: Family Provider Physician Assistant; PCP Physician Assistant; Referring Provider Psychiatry & Neurology Psychiatry; Visit Provider Psychiatry & Neurology Psychiatry
DX: F31.4 Bipolar disorder, current episode depressed, severe, without psychotic features (principal); F41.1 Generalized anxiety disorder; Z72.89 Other problems related to lifestyle
CPT/HCPCS: H0035; 90832; 90834; 90853

== ENCOUNTER → 2022-04-12 | Outpatient (CLI) | payer OTHER, SELFPAY ==
--- NOTE | 2022-04-12 15:52 | CT_ITS ---
INDICATION: L URETERAL STONE EXAMINATION: CT ABDOMEN AND PELVIS WITHOUT CONTRAST - CT Abdomen And Pelvis W/O Contrast Injection TECHNIQUE: Helically acquired images were obtained of the abdomen and pelvis without oral or IV contrast. A radiation dose optimization technique was used for this scan. IV Contrast dosage and agent: None. Oral contrast: None. COMPARISON: None. FINDINGS: LOWER CHEST: Lung bases are clear. No cardiomegaly or pericardial effusion. LIVER: Nonspecific fatty infiltrated liver.. No focal mass. GALLBLADDER AND BILIARY TREE: Gallbladder not visualized status post ectomy. No intra- or extrahepatic biliary ductal dilation. PANCREAS: No focal cystic or solid mass. SPLEEN: Normal size without focal cystic or solid mass. ADRENAL GLANDS: No nodules. KIDNEYS AND URETERS: Normal renal size and position. No hydronephrosis. PERITONEUM: No ascites or free air. No other fluid collection. BOWEL: No evidence of acute appendicitis. No stomach or bowel distension. No focal inflammatory change. LYMPH NODES: No enlarged mesenteric or retroperitoneal lymph nodes. VESSELS: Aorta is non-dilated. URINARY BLADDER: Incompletely distended mildly thick-walled prolapsed bladder. REPRODUCTIVE ORGANS: No pelvic masses. Status post hysterectomy ABDOMINAL WALL: Moderate-sized fat-containing umbilical hernia.. BONES: No lytic or blastic abnormality. CT/Abdomen/Pelvis without Cont IMPRESSION: Nonspecific fatty liver. Postop change status post hysterectomy and cholecystectomy. No evidence for renal obstruction or ureteral calculus Electronically Signed: Javi Partida MD at 16:12 [facility] ,
== END | disposition home or self-care (01) ==
LOC: CT 15:50
PROVIDERS: PCP Physician Assistant; Referring Provider Urology; Visit Provider Urology
DX: N20.1 Calculus of ureter (principal)
CPT/HCPCS: 74176